=== PATIENT | female | born 1980 | race Caucasian/White ===

== ENCOUNTER 2019-08-30 00:03 | Inpatient (IN) | payer BC, SELFPAY ==
[2019-08-30] VITALS (19 sets, daily range): BP systolic 81–176; BP diastolic 53–90; PULSE 62–98; RESP 16–18; TEMP 36.1–36.7; O2SAT 100; BMI 28.6
--- NOTE | 2019-08-30 00:31 | LDADM ---
This patient, Marco Antonio Damon, was admitted to Labor/Delivery/Recovery 105 on 08/30/19 at 00:03. Plans for labor, pain management and were discussed with patient. Patient/family oriented to hospital policies and general routines including ID bracelet, bed and alarms, visiting hours, pain management, procedures, bathroom and other care routines, personal items, smoking policy, room service/diet and guest tray routines, infant security routines, and visiting hours. Patient/Family are encouraged to report perceived risks to care and to ask questions if they do not understand what they are told or what they should do. See OBIX for further documentation.
[2019-08-30 00:32] LABS: Basophils Absolute Auto 0.1 K/mm3 (0.0-0.1); Basophils Percent Auto 0.7 % (0.2-1.2); Eosinophils Absolute Auto 0.3 K/mm3 (0-0.3); Eosinophils Percent Auto 3.8 % (0-4.4); Hematocrit 40.7 % (37.0-47.0); Hemoglobin 13.7 g/dL (12.0-15.0); Immature Granulocyte Absolute 0.12 K/mm3 (0.00-0.031); Immature Granulocyte Percent A 1.6 % (0-0.5); Lymphocytes Absolute Auto 1.39 K/mm3 (0.9-3.2); Lymphocytes Percent Auto 18.1 % (18.3-44.2); Mean Corpuscular HGB Conc 33.7 g/dl (32-36); Mean Corpuscular Hemoglobin 31.2 pg (26-34); Mean Corpuscular Volume 92.7 fl (80-100); Mean Platelet Volume 10.9 fl (7.4-10.4); Monocytes Absolute Auto 0.6 K/mm3 (0.1-0.6); Monocytes Percent Auto 7.4 % (2.6-8.5); Neutrophils Absolute Auto 5.3 K/mm3 (1.3-6.7); Neutrophils Percent Auto 68.4 % (45.5-73.1); Platelet Count Result 188 k/mm3 (150-375); Red Blood Count 4.39 M/mm3 (4.2-5.4); Red Cell Distribution Width 13.1 % (11.5-14.5); White Blood Count 7.7 K/mm3 (4.5-10.0)
[2019-08-30] MEDS: OXYTOCIN 30 UNITS/NS 500 ML 30 UNITS/500 ML BAG 999 UNITS IV CONT (01:39)
[2019-08-30] MEDS: IBUPROFEN 600 MG TABLET (01:50)
--- NOTE | 2019-08-30 01:52 | WPDHPUPDATE1 ---
History and Physical Update Update Date/Time: 08/30/19 01:52 History and Physical has been reviewed, including an updated exam of the patient. There are NO changes in the patient's condition. Risks, benefits, and alternatives have been discussed and questions answered. Patient agrees to proceed with procedure.
--- NOTE | 2019-08-30 01:52 | WPDOBADMIT ---
Obstetrics - Admit Note Admission Note: record reviewed. No pertinent additions to the history and/or any subsequent changes in the physical findings that are not consistent with the expected course of the were found. Additions to the history and/or subsequent changes in the physical findings follow. None.
--- NOTE | 2019-08-30 01:52 | PM.OBPRVD ---
OB - Delivery Note Procedure Delivery date: 08/30/19 Route of delivery: Episiotomy description: None Laceration description: None Specimen: No Estimated blood loss (mL): 200 Anesthesia type: None Disposition: floor Narrative: Patient prepped and draped in usual manner for this procedure. Maternal expulsive efforts readily delivered vertex and the rest of the baby followed without difficulty. Cord was clamped and cut and the placenta delivered spontaneously. Uterus was well contracted with minimal bleeding. Cervix vagina and vulva were inspected with no lacerations or tears. This point seizure was considered terminated with immediate postoperative condition of the mother baby both excellent. Baby Weeks of gestation at delivery: 39 gender: Male Weight (pounds): 7 Weight (ounces): 12 score one minute: 8 score five minutes: 9
[2019-08-30 01:55] LABS: HIV 1/2 Ab P24 Ag Result Negative (Negative)
[2019-08-30] MEDS: OXYTOCIN 30 UNITS/NS 500 ML 30 UNITS/500 ML BAG 125 UNITS IV CONT (02:10)
[2019-08-30] MEDS: WITCH HAZEL 40 PADS 1 PAD TOPICAL (03:13)
--- NOTE | 2019-08-30 03:51 | PC.NURSE ---
Patient transferred to post room #288 via wheel chair. Support person present. Oriented to unit, room, information board, rooming in, admission packet and security measures. Patient verbalizes understanding.
[2019-08-30] MEDS: MULTIVIT/MIN/PREN/FOL AC/IRON TABLET 1 TAB PO (07:06)
[2019-08-30] MEDS: LANOLIN (LANSINOH) 7.5 GM CREAM 1 APPLIC TOPICAL (07:07)
[2019-08-30] MEDS: IBUPROFEN 600 MG TABLET PO ×3 (12:03→23:41)
[2019-08-30] MEDS: BENZOCAINE 20% AER SPR (*SP) 56 GM CAN 1 SPRAY TOPICAL (12:05)
--- NOTE | 2019-08-30 19:15 | PC.NURSE ---
Patient was given the opportunity to view the discharge video Mother & Baby Care, The First Two Weeks and to ask questions. Patient declined viewing the video and has been given the mother/baby guide for home reference.
[2019-08-31 06:04] LABS: Hematocrit 36.9 % (37.0-47.0); Hemoglobin 12.2 g/dL (12.0-15.0)
[2019-08-31] MEDS: IBUPROFEN 600 MG TABLET PO (08:23)
[2019-08-31] MEDS: MULTIVIT/MIN/PREN/FOL AC/IRON TABLET 1 TAB PO (08:23)
[2019-08-31 08:45] VITALS: BP 110/65; PULSE 70; RESP 20; TEMP 36.8
--- NOTE | 2019-08-31 12:39 | P.DS_ITS ---
OB - DS: Summary OB Procedures : None OB Procedures Intrapartum: Spontaneous Vag Delivery OB Procedures: : None Time Spent with Patient Time attestation: Total time spent providing and/or coordinating discharge services: DS: Data Data Completed and Pending Labs on day of discharge: Labs from last 24 hours 08/31/19 05:53 Hgb 12.2 Hct 36.9 L Discharge Plan Discharge Consulting providers: Brandon Galdamez Discharging Clinician: Jacinto Aj Patient Disposition: Home, Self-Care Activity: as tolerated Diet: as tolerated Patient Instructions: Antibiotic Form Stand Alone Forms: General Discharge Information Follow-up/Referrals: Jacinto Aj MD [Physician] - Discharge Medications: Continued PNV cmb#95-ferrous fumarate-FA [] 28 mg iron- 800 mcg Tablet 1 tablet PO DAILY RF: 0 Date of admission: 08/30/19 00:03 Primary Care Provider: PHYSICIAN,CENTRAL SUPPLY CLERK Admitting Provider: Jacinto Aj Attending physician on admission: Jacinto Aj
[2019-09-01 07:07] LABS: Rapid Plasma Reagin Non-Reactive (NonReactive)
[2019-09-02 11:35] VITALS: BP 120/72; PULSE 66; RESP 18; TEMP 37.2; O2SAT 100
== END 2019-08-31 14:58 | disposition home or self-care (01) | DRG 807 ==
LOC: ANHLDR 01:08 → ANHOB2 03:55
PROVIDERS: Admitting Provider Obstetrics & Gynecology; Visit Provider Obstetrics & Gynecology
DX: O62.3 Precipitate labor (principal); Z37.0 Single live birth; Z3A.39 39 weeks gestation of pregnancy
CPT/HCPCS: 36415; 85014; 85018; 85025; 86592; 86703; 86850; 86900; 86901; A9270; G0432; J2590

== ENCOUNTER 2021-06-03 00:56 | Day surgery (SDC) | payer BC, SELFPAY ==
--- NOTE | 2021-06-02 09:08 | PC.NURSE ---
Report to the Outpatient Waiting Room, entrance under the green pavilion located off [facility], at time _0900 on date _06/03/21 . OR Time: _0 . RAPID COVID TESTING AT 0900 - You and your visitor will be asked a series of questions to screen for COVID 19 for your protection. - A mask is required within the hospital. Preoperative COVID Testing Requirements: No COVID Test needed if: (proof is required; if not received patient will have Rapid Test prior to entry) - Patient has received COVID Vaccine at least 14 days prior to procedure date or - Patient has positive COVID test result within last 90 days of surgery date. COVID Test needed if above criteria is not met If not COVID vaccinated a COVID test must be conducted within 72 hours of surgery and patient is asked to isolate self from time of testing until procedure. You will go to the [employer] [facility] Testing Site for your COVID testing. The [employer] [facility] is located at the corner of [address] from [facility]. You will only be called if COVID results are positive and your surgeon may reschedule your elective surgery date. Patients may have clear liquids (water, carbonated beverages, clear teas, apple juice) until 3 hours prior to surgery with a maximum of 20 ounces. - No food from midnight until time of surgery - Infants may have breast milk until 4 hours before surgery, formula 6 hours prior to surgery. - Children will be allowed to drink immediately following surgery. If applicable, please bring a bottle or sippy cup to assist with drinking. Juice, water, soda, and popsicles are readily available. For infants on formula, please bring formula the day of surgery. Pacifiers are allowed. Take the following medications with a SIP of water the morning of surgery: ___NONE Medications to discontinue per physician ALL VITAMINS AND SUPPLEMENTS Date to take last dose Please no make-up, nail maori, hairspray, perfume, deodorant, or body powder the day of surgery. No jewelry (including any body piercings) or valuables the day of surgery, leave them at home. Please take a shower or bath the night before, or the morning of, surgery with an antibacterial soap. Wear comfortable, loose fitting clothing. Children are encouraged to wear pajamas. - Jewelry must be removed prior to entering the operating room. Rings and piercings that are not removed may be cut off. - The hospital will not accept responsibility for valuables. - Please leave all valuables, including medications, at home the day of surgery. If you are going home after surgery, a licensed skip load driver must drive you home. - NO public transportation without another adult. - We recommend that an adult stay with you for 24 hours following discharge. - We also recommend that you do not drive, make important decision, drink alcoholic beverages, or take any drugs that were not prescribed by your health care provider for at least 24 hours after your discharge time. For Pediatric surgeries, we recommend two adults accompany the child home (only one inside the building at this time). One visitor will be allowed to accompany the patient into the hospital. Patients visitor will be instructed to remain with patient at all times or leave the building. We will allow the visitor to come back to the postoperative area when patient is ready. Follow any additional instructions given to you from your surgeon. Telephone instructions given to _PATIENT and asked if any additional questions and then verbalized understanding. Patient advised to call surgeon office or pre surgery nurse liaison [phone] if any additional questions.
[2021-06-02 09:10] VITALS: BMI 23.3
[2021-06-03 10:00] VITALS: BP 110/60; PULSE 71; RESP 16; TEMP 36.5; O2SAT 100
--- NOTE | 2021-06-03 10:13 | WPDANESEPPF ---
Anes - Initial Pre Proc Eval Procedure: Operation Date: 06/03/21 11:30 Proposed Procedures p Suction Dilation and Curettage - Gaviota Lerma DO Date/Time: 06/03/21 10:13 Surgeon: Gaviota Lerma DO Pre Op Diagnosis: missed ab Patient Data Age: 41 Gender: F Height: 1.65 m Weight: 63.55 kg Allergies Allergy/AdvReac Type Severity Reaction Status Date / Time methylergonovine Allergy Intermediate chest pain Verified 06/03/21 10:20 and hypertension Home Medications Medication Instructions Recorded Confirmed Type PNV cmb#95-ferrous fumarate-FA 1 tablet PO DAILY 08/14/19 06/03/21 History [] Probiotic 1 tablet PO DAILY 06/02/21 06/03/21 History folic acid 1 mg PO DAILY 06/02/21 06/03/21 History magnesium 1 tablet PO DAILY 06/02/21 06/03/21 History Patient hx anesthesia problems: none Family hx anesthesia problems: none Results Review: All pre-operative results and documents have been reviewed as part of the pre-operative evaluation. [facility] Family History Family History (Updated 08/14/19 @ 15:47 by Jamal Roth RN) Other No pertinent family history Social History Social History Smoking packs per day: 0.5 Smoking cigarettes per day: 10.0 Years smoked: 5 Smoking pack-years: 2.50 Smoking status: Former smoker Tobacco type: cigarettes Smoking end date: 02/19/01 Alcohol intake: current Drinks per week: 2 Substance use: never Gender identity (if verbalized by the patient): Female Spiritual care concerns: No Anes - Eval Final PreProcedure Day of Procedure 06/03/21 10:13 Patient weight: normal Heart: regular rate and rhythm Lungs: clear to auscultation Airway: Mallampati scale class II Neurological: alert and oriented Last oral intake: >/= 8 hours ASA classification: II Emergent: no Anesthetic plan: proceed Anesthesia type and monitoring: general GIVS and standard monitoring Results Review: All pre-operative results and documents have been reviewed as part of the pre-operative evaluation. Informed Consent: The patient's anesthetic plan and its attendant risks and benefits were discussed with the patient/family/POA. Questions were solicited and answers provided to the satisfaction of the patient/family/POA.
[2021-06-03] MEDS: ACETAMINOPHEN 500 MG TABLET 1000 MG PO (10:24)
[2021-06-03] MEDS: LACTATED RINGERS 1,000 ML 30 ML IV CONT ×2 (10:35→12:45)
[2021-06-03 10:42] LABS: Hematocrit 38.9 % (37.0-47.0); Hemoglobin 13.3 g/dL (12.0-15.0); Mean Corpuscular HGB Conc 34.2 g/dl (32-36); Mean Corpuscular Hemoglobin 30.7 pg (26-34); Mean Corpuscular Volume 89.8 fl (80-100); Mean Platelet Volume 8.7 fl (7.4-10.4); Platelet Count Result 359 k/mm3 (150-375); Red Blood Count 4.33 M/mm3 (4.2-5.4); Red Cell Distribution Width 11.6 % (11.5-14.5); White Blood Count 8.4 K/mm3 (4.5-10.0)
--- NOTE | 2021-06-03 11:44 | PM.IMHP ---
H&P: HPI History of Present Illness Date/Time: 06/03/21 11:44 Chief Complaint: I'm here for my D&C. Narrative: Patient here for suction D&C due to missed at 9weeks by dates but only 6 weeks by ultrasound. She has had falling quants and no change in the appearance on ultrasound. She denies bleeding or cramping today. Review of Systems Review of Systems: All systems reviewed & are unremarkable except as noted in HPI and below PMFSH Family History Family History (Updated 08/14/19 @ 15:47 by Jamal Roth RN) Other No pertinent family history Social History Social History Smoking packs per day: 0.5 Smoking cigarettes per day: 10.0 Years smoked: 5 Smoking pack-years: 2.50 Smoking status: Former smoker Tobacco type: cigarettes Smoking end date: 02/19/01 Alcohol intake: current Drinks per week: 2 Substance use: never Gender identity (if verbalized by the patient): Female Spiritual care concerns: No Meds Home Medications and Allergies Home Medications Medication Instructions Recorded Confirmed Type PNV cmb#95-ferrous fumarate-FA 1 tablet PO DAILY 08/14/19 06/03/21 History [] Probiotic 1 tablet PO DAILY 06/02/21 06/03/21 History folic acid 1 mg PO DAILY 06/02/21 06/03/21 History magnesium 1 tablet PO DAILY 06/02/21 06/03/21 History Allergies Allergy/AdvReac Type Severity Reaction Status Date / Time methylergonovine Allergy Intermediate chest pain Verified 06/03/21 10:20 and hypertension Vital Signs Vital Signs - 24 hr 06/03/21 10:00 Temperature 36.5 C Pulse Rate 71 Respiratory Rate 16 Blood Pressure 110/60 Pulse Oximetry 100 Exam Const: General: comfortable and no acute distress Eyes: General: appearance normal, both eyes and all related structures Resp: Auscultation: clear to auscultation bilaterally Cardio: Rate: regular rate Rhythm: regular rhythm GI: GI Palp: Yes Soft to palpation Percussion: Yes normal to percussion Auscultation: normal bowel sounds Skin: General skin exam: normal color Neuro: General: gait normal Cognition (Neuro): normal cognition Speech: normal speech Extrem: General: normal to inspection Psych: Mental Status: mental status grossly normal Affect: normal affect H&P: Results Labs Labs: Short CBC 06/03/21 Range/Units 09:56 WBC 8.4 (4.5-10.0) K/mm3 Hgb 13.3 (12.0-15.0) g/dL Hct 38.9 (37.0-47.0) % Plt Count 359 D (150-375) k/mm3 Assessment and Plan Assessment and plan (1) Missed : Code(s): O02.1 - Missed Status: Acute
--- NOTE | 2021-06-03 11:48 | WPDHPUPDATE1 ---
History and Physical Update Update Date/Time: 06/03/21 11:48 History and Physical has been reviewed, including an updated exam of the patient. There are NO changes in the patient's condition. Risks, benefits, and alternatives have been discussed and questions answered. Patient agrees to proceed with procedure.
[2021-06-03 12:42] VITALS: BP 117/68; PULSE 97; RESP 14; O2SAT 100
--- NOTE | 2021-06-03 12:50 | W.PM.PROC2 ---
Procedure Note - Detailed Date of Procedure 06/03/21 Pre-op Diagnosis missed ab Post-op Diagnosis Same Procedure Performed Suction D&C Surgeon Gaviota Lerma, Anesthesia Other (TIVA) Indications Missed Findings Normal appearing vulva and vaginal canal. Large multiparious cervix. Postoperatively the endometrial stripe appeared normal and the uterus empty. Description of Procedure Patient was taken to the operating room she was placed under total IV sedation. No preoperative antibiotics were indicated. A time-out was performed. A speculum was placed in the vagina and the cervix was visualized. The anterior lip of the cervix was grasped with a long clamp. A paracervical block was performed % lidocaine without epinephrine. The cervix was then sequentially dilated to accommodate a 7 mm curved suction curette. Uterus was sounded to 9 cm. A sharp curettage of the cavity to loosen the decidual material was performed. The suction curette was introduced and the suction was checked. The curette was passed multiple times and a large amount of tissue was retrieved. Ultrasound was then used and showed additional tissue in the right and left cornual areas. The sharp curette was then used to loosen this tissue and it was retrieved with the suction curette. Repeat ultrasound showed an empty uterus and a normal-appearing endometrial stripe. All blood clots and fluid were suctioned out of the vaginal canal. The Allis and speculum were removed. The patient was taken to the recovery room in stable condition. All instrument sponge counts were correct at the conclusion of the procedure. Estimated Blood Loss 175 IV Fluids 1,000 Drains No Packing No Pathology Yes Complications No immediate complications Condition Stable Disposition PACU
[2021-06-03 13:12] VITALS: BP 119/83; PULSE 65; RESP 16; O2SAT 100
[2021-06-03] MEDS: DOXYCYCLINE HYCLATE 100 MG TABLET PO (13:18)
== END 2021-06-03 13:30 | disposition home or self-care (01) ==
PROVIDERS: PCP Family Medicine; Visit Provider Obstetrics & Gynecology Gynecologic Oncology
PROC: (CPT 59820; principal; 2021-06-03 11:30)
DX: O02.1 Missed abortion (principal); Z87.891 Personal history of nicotine dependence
CPT/HCPCS: 59820; 36415; 85027; 88305; A9270; J1100; J2250; J2405; J2704; J3010; J7120

== ENCOUNTER 2021-06-03 08:56 | Outpatient (CLI) | payer BC, SELFPAY ==
[2021-06-03 09:42] LABS: EDCOVIDSCREEN Negative (Negative)
== END 2021-06-03 08:57 | disposition home or self-care (01) ==
LOC: ANHSURGERY 08:59
PROVIDERS: PCP Family Medicine; Visit Provider Obstetrics & Gynecology Gynecologic Oncology
DX: Z01.812 Encounter for preprocedural laboratory examination (principal); Z20.822 Contact with and (suspected) exposure to COVID-19
CPT/HCPCS: 87426; C9803

== ENCOUNTER 2024-12-10 09:36 | Outpatient (CLI) | payer BC, SELFPAY ==
[2024-12-10 10:55] LABS: Hematocrit 39.1 % (37.0-47.0); Hemoglobin 12.7 g/dL (12.0-15.0); Immature Granulocyte Percent A 0.3 % (0-0.5); Lymphocytes Absolute Auto 0.96 K/mm3 (0.9-3.2); Mean Corpuscular HGB Conc 32.5 g/dl (32-36); Mean Corpuscular Hemoglobin 30.5 pg (26-34); Mean Corpuscular Volume 93.8 fl (80-100); Nucleated Red Blood Cells Absolute Auto 0.000 K/mm3 (0.0-0.012); Nucleated Red Blood Cells Perc 0.0 % (0.0-0.2); Platelet Count Result 337 k/mm3 (150-375); Red Blood Count 4.17 M/mm3 (4.2-5.4); White Blood Count 11.7 K/mm3 (4.5-10.0)
--- OUTSIDE RECORDS SUMMARY | 2024-12-10 10:58 | XMS_ITS ---
Author Organization Unknown ENCOUNTERS Encounter Performer Location Date Diagnosis Diagnosis Status [facility] [address] [place] [address] [id number] Pre Admit G[facility] [address] [place] [phone] [id number] Outpatient Gaviota [facility] [address] [facility] [address] [place] [id number] [place] Outpatient G[facility] [address] [place] [phone] [id number] [place] *Note: Encounters from your own facility or health system may be excluded. Allergies, Adverse Reactions, Alerts Allergen Type Severity Identification Date methylergonovine drug allergy 3 [id number] Medications Name Date Quantity Days Supplied GPI Number
--- OUTSIDE RECORDS SUMMARY | 2024-12-10 10:58 | XMS_ITS | Encounter Summary ---
Author Organization [facility] Address [address] [place] [address] Care Team Providers Care Superintendent Gas Distribution Name Role Phone Ike Knight MD Primary Care Provider Dewayne Motta MD Unavailable [phone] Encounter Details Date Type Department Care Team (Late st Contact Info) Description 08/11/2016 Abstract [facility] AT [address] [address] Bhavik Villegas MA Social History Tobacco Use Types Packs/Day Years Used Date Smoking Tobacco: Former Smokeless Tobacco: Never Alcohol Use Standard Drinks/Week Comments No 0 (1 standard drink = 0.6 oz pur e alcohol) Comments Unknown Sex and Gender Information Value Date Recorded Sex Assigned at Not on file Legal Sex Female 8:28 AM CDT Gender Identity Not on file Sexual Orientation Not on file documented as of this encounter Plan of Treatment Not on file documented as of this encounter Procedures Procedure Name Priority Date/Time Associated Diagnosis Comments CBC (OUTSIDE LAB) Routine 06/30/2016 COMPREHENSIVE METABOLIC PANEL Routine 06/30/2016 documented in this encounter Results * CBC (OUTSIDE LAB) (06/30/2016) WBC 8.4 HGB 13 HCT 38.9 PLT 137 06/30/2016 us [facility] Abstract LAB-OUTSIDE/ABSTRACTED Final Result * (ABNORMAL) COMPREHENSIVE METABOLIC PANEL (06/30/2016) SODIUM S/P/B 135 POTASSIUM S/P/B 4.3 CO2 22 CHLORIDE S/P/B 99 GLUCOSE 95 CALCIUM S/P/B 8.6 BUN 10 CREATININE S/P/B 0.41(A) 0.5 - 1.0 EGFR AFR. AMER. >60 <=90 EGFR NON-AFR. AMER. >60 <=90 ALKALINE PHOSPHATASE S/P/B 469 ALT 94 AST 42 BILIRUBIN TOTAL S/P/B 0.2 ALBUMIN S/P/B 3.3(A) 3.5 - 5.0 TOTAL PROTEIN S/P/B 6.1 GLOBULIN 2.8 06/30/2016 us Doc [facility] Abstract LABORATORY Edited Resul t - Final documented in this encounter Visit Diagnoses Not on filedocumented in this encounter Care Teams Superintendent Gas Distribution Relationship Specialty Start Date End Date Ike Knight MD [address] [place] [address] PCP - General 08/11/16 Dewayne Motta MD [address] [place] [address] [place] Courier Driver CARDIOVASCULAR DISEASE 02/20/16 documented as of this encounter
--- OUTSIDE RECORDS SUMMARY | 2024-12-10 10:58 | XMS_ITS | Clinical Summary ---
Author Organization [facility] Address [address] [place] [address] Care Team Providers Care Juice Scaleman Name Role Phone Ike Knight MD Primary Care Provider Dewayne Motta MD Unavailable [phone] Allergies Active Allergy Reactions Criticality Noted Date Comments Methylergonovine Chest pressure 08/07/2017 Chest pain and high blood pressure Medications Dtpoudva-Xyn-J e-FA ( FORTE) Tab Take 1 tablet by mouth daily. 8 Active phenylephrine- cocoa butter (PREPARATION H) 0.25-88.44 % suppositoryInd ications:Hemor rhoids, internal, with bleeding Place 1 suppository rectally 4 (four) times daily as needed for Hemorrhoids. 24 suppository 2 0 Active Active Problems Problem Noted Date Diagnosed Date Essential (primary) hypertension 08/10/2016 Chest pain Family History Medical History Relation Comments Hypertension Father Cancer Mother Skin Relation Status Comments Father Mother Social History Tobacco Use Types Packs/Day Years Used Date Smoking Tobacco: Former Smokeless Tobacco: Never Alcohol Use Standard Drinks/Week Comments No 0 (1 standard drink = 0.6 oz pur e alcohol) Comments Unknown Sex and Gender Information Value Date Recorded Sex Assigned at Not on file Legal Sex Female 8:28 AM CDT Gender Identity Not on file Sexual Orientation Not on file Last Filed Vital Signs Vital Sign Reading Time Taken Comments Blood Pressure 120/64 08/07/2017 3:19 PM CDT Pulse 74 08/07/2017 3:19 PM CDT Temperature - - Respiratory Rate - - Oxygen Saturation 98% 08/07/2017 3:19 PM CDT Inhaled Oxygen Concentration - - Weight 57.2 kg (126 lb) 08/07/2017 3:19 PM CDT Height 165.1 cm (5' 5) 08/07/2017 3:19 PM CDT Body Mass Index 20.97 08/07/2017 3:19 PM CDT Plan of Treatment Health Maintenance Due Date Last Done Comments Cervical Cancer Screening Pa p Smear (Age 30 to 64) Every 3 Years 1980 Annual Physical 1983 Hepatitis C 1998 DTaP, Tdap and Td Vaccines ( 1 - Tdap) 1999 Hepatitis B Vaccines (1 of 3 - 19+ 3-dose series) 1999 HPV Vaccines (1 - 3-dose SCD M series) 2007 Cervical Cancer Screening Pa p with HPV Testing (Age 30 to 64) Every 5 Years 2010 Cervical Cancer Screening with HPV 2010 Mammogram Screening 2020 COVID-19 Vaccine ( - 2024-2 6 season) 2024 Influenza Adult (#1) 2024 Hepatitis A Vaccines Aged Out No long er eligible based on patient's age to complete this topic Meningococcal B Vaccine Aged Out No l onger eligible based on patient's age to complete this topic Meningococcal Vaccine Aged Out No harini ana eligible based on patient's age to complete this topic Pneumococcal Vaccine: Pediat rics (0 to 5 Years) and At-Risk Patients (6 to 49 Years) Aged Out No longer eligible b ased on patient's age to complete this topic RSV Immunizations Under 20 Months Aged Out No longer eligible based on patient's age to complete this topic Insurance [facility] [place] [address] [address] [place] [address] [employer] [facility] Care Teams Juice Scaleman Relationship Specialty Start Date End Date Ike Knight MD [address] [place] [address] PCP - General 08/11/16 Dewayne Motta MD [address] [facility] [address] [place] [address] Opp Neuropsychologist CARDIOVASCULAR DISEASE 02/20/16
[2024-12-10 11:18] LABS: Alanine Aminotransferase 40 U/L (6-35); Albumin Level 4.5 g/dL (3.5-5.1); Alkaline Phosphatase 48 U/L (38-126); Anion Gap 4 mmol/L (4-12); Aspartate Amino Transferase 34 U/L (14-36); Bilirubin,Total 0.5 mg/dL (0.2-1.3); Blood Urea Nitrogen 13 mg/dL (7-17); Calcium 9.3 mg/dL (8.4-10.2); Carbon Dioxide 31 mmol/L (22-30); Chloride 103 mmol/L (98-107); Estimated Glomerular Filt Rate > 60; Glucose 95 mg/dL (65-110); Potassium 3.5 mmol/L (3.4-5.0); Sodium 138 mmol/L (137-145); Total Protein 7.3 g/dL (6.3-8.2)
[2024-12-10 11:50] LABS: Thyroid Stimulating Hormone Reflex 1.190 uIU/mL (0.465-4.68)
[2024-12-13 15:09] LABS: Free Testosterone (Direct) 1.6 pg/mL (0.0-4.2)
[2024-12-16 11:08] LABS: Estradiol, Sensitive 238.9 pg/mL (.)
== END 2024-12-10 09:37 | disposition home or self-care (01) ==
LOC: ANHLAB 09:37
PROVIDERS: PCP Family Medicine; Visit Provider Nurse Practitioner Obstetrics & Gynecology
DX: N96 Recurrent pregnancy loss (principal)
CPT/HCPCS: 36415; 80053; 82306; 82670; 84402; 84403; 84443; 85025

== ENCOUNTER 2024-12-29 15:13 | Outpatient (CLI) | payer BC, SELFPAY ==
--- OUTSIDE RECORDS SUMMARY | 2024-12-29 15:17 | XMS_ITS | Clinical Summary ---
Author Organization [facility] Address [address] [place] [address] Care Team Providers Care Accountant Helper Name Role Phone Ike Knight MD Primary Care Provider Dewayne Motta MD Unavailable [phone] Allergies Active Allergy Reactions Criticality Noted Date Comments Methylergonovine Chest pressure 08/07/2017 Chest pain and high blood pressure Medications Mximmyqi-Mgq-Q e-FA ( FORTE) Tab Take 1 tablet by mouth daily. 8 Active phenylephrine- cocoa butter (PREPARATION H) 0.25-88.44 % suppositoryInd ications:Hemor rhoids, internal, with bleeding Place 1 suppository rectally 4 (four) times daily as needed for Hemorrhoids. 24 suppository 2 0 Active Active Problems Problem Noted Date Diagnosed Date Essential (primary) hypertension 08/10/2016 Chest pain Encounters Date Type Department Care Team Description 12/16/2024 Scan HEALTH INFO SRVCS Scanned, [facility] Ultrasound (SCAN) 12/10/2024 Scan [facility] HEALTH INFO [facility] Scanned, [facility] Lab (SCAN) from Last 3 Months Family History Medical History Relation Comments Hypertension [...] Screening with HPV 2010 Mammogram Screening 2020 PHQ-2 (Physician Foster) 02/20/2024 COVID-19 Vaccine ( - 2024-2 6 season) [...] on patient's age to complete this topic Procedures Procedure Name Priority Date/Time Associated Diagnosis Comments ULTRASOUND GENERIC (SCAN ORDER) 12/16/2024 OUTSIDE LAB (SCAN ORDER) 12/10/2024 from Last 3 Months Results * ULTRASOUND GENERIC (SCAN ORDER) (12/16/2024) Anatomical Region Laterality Modality Other 12/16/2024 us Doc [facility] Scanned SCANNING Final Resu lt * OUTSIDE LAB (SCAN ORDER) (12/10/2024) 12/10/2024 us Doc [facility] Scanned SCANNING Final Resu lt from Last 3 Months Insurance [facility] Care Teams Accountant Helper Relationship Specialty Start Date End Date Ike Knight MD [address] [place] [address] PCP - General 08/11/16 Dewayne Motta MD [address] [facility] [address] [place], [place] [id number] [place] Chargemaster Analyst CARDIOVASCULAR DISEASE 02/20/16
--- OUTSIDE RECORDS SUMMARY | 2024-12-29 15:17 | XMS_ITS | Encounter Summary ---
Author Organization [facility] Address [address] [place] [address] Care Team Providers Care Family Resource Coordinator Name Role Phone Ike Knight MD Primary Care Provider Dewayne Motta MD Unavailable [phone] Encounter Details Date Type Department Care Team (Late st Contact Info) Description 08/11/2016 Abstract [facility] AT [address] [address] Bhavik Villegas MA Social History Tobacco Use [...] on filedocumented in this encounter Care Teams Family Resource Coordinator Relationship Specialty Start Date End Date Ike Knight MD [address] [place] [address] PCP - General 08/11/16 Dewayne Motta MD [address] [place] [address] [place] [employer] Assistant Manager CARDIOVASCULAR DISEASE 02/20/16 documented as of this encounter
[2024-12-30 07:09] LABS: FSH 6.2 mIU/mL (.)
== END 2024-12-29 15:14 | disposition home or self-care (01) ==
LOC: ANHLAB 15:15
PROVIDERS: PCP Family Medicine; Visit Provider Nurse Practitioner Family
DX: Z78.9 Other specified health status (principal)
CPT/HCPCS: 83001; 84144